=== PATIENT | female | born 1975 ===

== ENCOUNTER 2019-04-18 17:24 | Outpatient (REF) | payer SELFPAY ==
[2019-04-18 19:39] LABS: ALT 63 U/L (12-78); C-Reactive Protein 0.53 mg/dL (0.0-0.3); Glucose 162 mg/dL (70-100)
[2019-04-18 20:02] LABS: ESR 13 mm/hr (0-20)
[2019-04-20 09:36] LABS: Uric Acid 4.6 mg/dL (2.6-6.0)
[2019-04-20 10:46] LABS: Lyme Ab w Rflx to Lyme Confirm Negative
== END 2019-04-18 17:44 ==
LOC: NCHCN 17:24
PROVIDERS: PCP Internal Medicine; Visit Provider Internal Medicine
DX: M12.871 Other specific arthropathies, not elsewhere classified, right ankle and foot (principal)
CPT/HCPCS: 82947; 85652; 84460; 84550; 86140; 86618

== ENCOUNTER 2020-08-05 19:46 | Outpatient (REF) | payer SELFPAY ==
[2020-08-10 01:04] LABS: SARS-CoV-2 RNA Undetected (Undetected); SARS-CoV-2 Specimen Source Nasal
== END 2020-08-05 20:06 ==
LOC: NCHCN 19:46
PROVIDERS: PCP Internal Medicine; Visit Provider Internal Medicine
DX: Z20.828 Contact with and (suspected) exposure to other viral communicable diseases (principal)
CPT/HCPCS: U0003

== ENCOUNTER 2023-09-29 18:02 | Outpatient (REF) | payer SELFPAY ==
[2023-09-29 20:24] LABS: HCT 40.3 % (36.0-46.0); HGB 14.2 g/dL (11.2-15.7); MCH 31.4 pg (27.0-33.0); MCHC 35.2 % (32.0-36.0); MCV 89 fL (80-95); Platelet Count 364 10^3/uL (130-400); RBC 4.52 10^6/uL (3.93-5.22); RDW 12.1 % (11.7-14.6); RDW-SD 39.4 fL; WBC 8.61 10^3/uL (4.4-10.8)
[2023-09-29 20:34] LABS: ALT 66 U/L (14-59); AST 46 U/L (15-37); Albumin 4.2 g/dL (3.4-5.0); Alkaline Phosphatase 93 U/L (46-116); Bilirubin, Direct 0.2 mg/dL (0.0-0.2); Bilirubin, Total 0.7 mg/dL (0.2-1.0); Total Protein 8.2 g/dL (6.4-8.2)
[2023-09-29 20:44] LABS: Hemoglobin A1C 6.1 % (<5.7)
== END 2023-09-29 18:03 | disposition home or self-care (01) ==
LOC: NCHCN 18:02
PROVIDERS: PCP Internal Medicine; Visit Provider Internal Medicine
DX: R73.03 Prediabetes (principal); K70.10 Alcoholic hepatitis without ascites
CPT/HCPCS: 80076; 85027; 83036